=== PATIENT | male | born 1995 | race Caucasian/White ===

== ENCOUNTER 2023-03-13 09:33 | Day surgery (SDC) | payer BC ==
[2023-03-12 12:04] VITALS: BMI 31.6
[2023-03-13] MEDS ORDERED: PROPOFOL 60 ML ONE (10:06)
[2023-03-13] MEDS ORDERED: Lidocaine 2% MPF 10 ML AMP (For Epidural Use) ONE (10:06)
[2023-03-13] MEDS ORDERED: PROPOFOL 20 ML ONE (11:19)
== END 2023-03-13 12:08 | disposition home or self-care (01) ==
LOC: CSHSDC 09:33
PROVIDERS: ATTEND Internal Medicine Gastroenterology
PROC: 0DBM8ZZ Excision of Descending Colon, Via Natural or Artificial Opening Endoscopic (ICD-10-PCS; principal; 2023-03-13)
PROC: 0DBN8ZZ Excision of Sigmoid Colon, Via Natural or Artificial Opening Endoscopic (ICD-10-PCS; principal; 2023-03-13)
DX: D12.4 Benign neoplasm of descending colon (principal); K63.5 Polyp of colon; K64.8 Other hemorrhoids; K62.5 Hemorrhage of anus and rectum; I10 Essential (primary) hypertension; E66.9 Obesity, unspecified; Z68.31 Body mass index [BMI] 31.0-31.9, adult; Z79.899 Other long term (current) drug therapy
CPT/HCPCS: 88305; J2704